=== PATIENT | female | born 2000 | race Caucasian/White ===

== ENCOUNTER → 2021-03-12 | Outpatient (CLI) | payer OTHER ==
--- NOTE | 2021-03-12 11:42 | Diagnostic Imaging Report ---
INDICATION: RIGHT SHOULDER PAIN TECHNIQUE: Three views of the right shoulder CORRELATION STUDY: None FINDINGS: The glenohumeral and acromioclavicular alignment are maintained and unremarkable. There is no evidence for acute fracture or dislocation. The visualized soft tissues are unremarkable. IMPRESSION: 1. Negative for acute bony abnormality about the shoulder. Dictated by: Dictated on workstation # [id number]
--- NOTE | 2021-03-12 15:31 | Diagnostic Imaging Report ---
INDICATION: Right shoulder pain EXAMINATION: Right shoulder 03/12/2021 FINDINGS: A single view of the shoulder correlated to shoulder radiographs at an earlier time. There are no fractures or dislocations with the soft tissues unremarkable. IMPRESSION: 1. Negative single view of the shoulder. Dictated by: Dictated on workstation # [id number]
== END ==
LOC: RAD FS 11:18
PROVIDERS: ATTEND Nurse Practitioner
DX: M25.511 Pain in right shoulder (principal)
CPT/HCPCS: 73020; 73030